=== PATIENT | female | born 1975 | race American Indian/Alaskan Native ===

== ENCOUNTER 2016-12-31 08:18 | Day surgery (SDC) | payer BC ==
[~2016-12-31 08:18] MED LIST: NACL 0.9% IR ONE
--- NOTE | 2016-12-31 10:14 | Anesthesia Consultation ---
Anesthesia Consult and Med Hx Date of service: 12/31/16 - Airway Anesthetic Teeth Evaluation: Good ROM Head & Neck: Adequate Mental/Hyoid Distance: Adequate Mallampati Class: Class I Intubation Access Assessment: Probably Good - Pulmonary Exam CTA: Yes - Pre-Operative Health Status ASA Pre-Surgery Classification: ASA2 Proposed Anesthetic Plan: General - Pulmonary Hx Smoking: No - Central Nervous System Hx Psychiatric Problems: No - Hematic Hx Anemia: Yes (RESOLVED) Hx Sickle Cell Disease: (TRAIT ONLY) - Other Systems Hx Cancer: No
--- NOTE | 2016-12-31 10:15 | Anesthesia Day of Surgery ---
Anesthesia Day of Surgery - Day of Surgery Patient Examined: Yes Patient H&P Reviewed: Yes Patient is NPO: Yes
[2016-12-31] MEDS ORDERED: PEPCID PO NR (10:49)
[2016-12-31] MEDS ORDERED: LACTATED RINGERS 1,000 ML IV SCH (10:49)
[2016-12-31] MEDS ORDERED: VERSED IV NR (10:50)
[2016-12-31] MEDS ORDERED: DILAUDID ONE ×2 (13:23→14:42)
[2016-12-31] MEDS ORDERED: DIPRIVAN 10 MG/ML IV ONE ×2 (13:23→14:39)
[2016-12-31] MEDS ORDERED: NACL 0.9% IR ONE (13:26)
[2016-12-31] MEDS ORDERED: XYLOCAINE MPF 2% ONE (13:32)
[2016-12-31] MEDS ORDERED: VERSED ONE (13:44)
[2016-12-31] MEDS ORDERED: ZOFRAN IV PRN (14:12)
[2016-12-31] MEDS ORDERED: PERCOCET 5/325 PO PRN (14:17)
[2016-12-31] MEDS ORDERED: ANCEF ONE ×2 (14:19)
[2016-12-31] MEDS ORDERED: APRESOLINE ONE (14:48)
[2016-12-31] MEDS ORDERED: ZOFRAN ONE (15:14)
[2016-12-31] MEDS ORDERED: DECADRON ONE (15:14)
[2016-12-31] MEDS ORDERED: BREVIBLOC IV ONE (15:30)
[2016-12-31] MEDS ORDERED: NEO SYNEPHRINE/NS Syringe(OR USE) IV ONE (15:30)
--- NOTE | 2016-12-31 16:21 | Discharge Summary ---
Short Stay Discharge Plan Activity: no restrictions Weight Bearing Status: Full Weight Bearing Diet: regular Wound: remove dressing (72hrs) Follow up with: DEIDRA SAUNDERS MD [Primary Care Provider] - 6 Weeks WORK,EVANGELINA Smiley JR, MD [Staff Physician] - 7 Days
--- NOTE | 2016-12-31 16:22 | Short Stay Summary ---
Short Stay Documentation Date of service: 12/31/16 - Allergies and Medications Current Medications: Allergies green pepper Allergy (Verified 12/26/16 13:51) Anaphylaxis lorne Allergy (Verified 12/26/16 13:50) Anaphylaxis pecan nut Allergy (Verified 12/26/16 13:50) Anaphylaxis Home Medications Medication Instructions Recorded Confirmed Last Taken Type No Known Home Medications [No 12/26/16 12/26/16 Unknown History Reported Home Medications] Active Medications Famotidine (Pepcid) 20 mg PO PREOP NR Stop: 12/31/16 23:59 Last Admin: 12/31/16 11:09 Dose: 20 mg Hydromorphone HCl (Dilaudid) 0.5 mg IV Q10MIN PRN PRN Reason: Pain , Severe (7-10) Stop: 01/03/17 14:13 Lactated Ringer's (Lactated Ringers) 1,000 mls @ 75 mls/hr IV DIRECT LEATHA Last Admin: 12/31/16 11:09 Dose: 75 mls/hr Midazolam HCl (Versed) 2 mg IV PREOP NR Stop: 12/31/16 23:59 Last Admin: 12/31/16 11:10 Dose: 2 mg - Brief post op/procedure progress note Date of procedure: 12/31/16 Pre-op diagnosis: Macromastia Post-op diagnosis: same Procedure: Bilateral Breast Reduction Anesthesia: GETA Surgeon: EVANGELINA CLEANING JR Estimated blood loss: 50-100ml Specimen disposition: to lab Condition: stable - Disposition Condition at discharge: Good Disposition: DC-01 TO HOME OR SELFCARE Short Stay Discharge Plan Follow up with: EVANGELINA CLEANING JR, MD [Staff Physician] - 7 Days DEIDRA SAUNDERS MD [Primary Care Provider] - 6 Weeks
[2016-12-31] MEDS: DILAUDID IV PRN ×3 (16:50→17:30)
--- NOTE | 2016-12-31 17:01 | Post Anesthesia Evaluation ---
- Post Anesthesia Evaluation Patient Participated: Yes Airway Patent: Yes Stable Respiratory Function: Yes Temp > 96.8F: Yes Pain Manageable: Yes Adequeate Hydration: Yes Anesthesia Complications: No
[2016-12-31 17:48] VITALS: BP 106/68
[2016-12-31] MEDS ORDERED: PERCOCET 5/325 ONE (18:06)
--- NOTE | 2016-12-31 19:55 | Operative Report ---
PREOPERATIVE DIAGNOSIS: Macromastia. POSTOPERATIVE DIAGNOSIS: Macromastia. PROCEDURE: Bilateral reduction mammoplasty. SURGEON: Bruno Wheatley MD VICTIM WITNESS ADMINISTRATOR: Oseas Rosa CSA FINDINGS: 680 gm removed from the right breast, 480 gm removed from the left breast. DESCRIPTION OF PROCEDURE: The patient was brought in to the operating room and placed on the table in supine position. Following administration of general anesthesia, bilateral breasts were prepped with Betadine solution, draped in usual sterile manner. A #10 blade scalpel was used to make a circumareolar skin incision followed by de-epithelization of inferior dermal pedicle. Modified Bolanos pattern skin markings were incised with scalpel, deepened through subcutaneous fat and breast tissue using electrocautery. Skin flaps were raised in standard manner as was fashioning of an inferior central mound pedicle. Breast tissue resected, sent to pathology as specimen. Hemostasis controlled using electrocautery. Closure was performed over two 10-mm Sabino drains using interrupted and running subcuticular 2-0 Monocryl sutures. Mastisol, Steri-Strips, and sterile dressings applied. The patient tolerated the procedure well and returned to recovery room in stable condition. JOB# [id number] FTW/NTS
== END 2016-12-31 18:54 | disposition home or self-care (01) ==
LOC: OR 08:18
PROVIDERS: ATTEND Plastic Surgery
DX: N62 Hypertrophy of breast (principal)
CPT/HCPCS: 19318; 81025; 88305; J0360; J0690; J1100; J1170; J2250; J2370; J2405; J2704; J7120